=== PATIENT | female | born 1975 | race American Indian/Alaskan Native ===

== ENCOUNTER 2020-12-14 10:55 | Outpatient (CLI) | payer MEDICAID ==
--- NOTE | 2020-12-14 12:53 | XRay Report ---
BILATERAL KNEE RADIOGRAPH, 2 VIEWS INDICATION / CLINICAL INFORMATION: BILATERAL KNEE PAIN COMPARISON: None available. FINDINGS: Right knee: No acute displaced fracture or dislocation. There is mild degenerative change of the simons llofemoral compartment. There is no suprapatellar effusion. Small superior and inferior patellar enth esophytes. No significant soft tissue abnormality. Left knee: No acute displaced fracture or dislocation. There is mild to moderate degenerative change of the patellofemoral compartment. There is a corticated ossific density along the anterior aspect of the tibial tuberosity which may be related to chronic injury. No large supra patellar effusion. Ther e is edema noted in Hoffa's fat pad. Signer Name: Maura Winston MD Signed: 12/14/2020 12:49 PM Workstation Name: [id number]
== END 2020-12-14 10:56 | disposition home or self-care (01) ==
LOC: XRAY 10:55
PROVIDERS: ATTEND Orthopaedic Surgery
DX: M17.0 Bilateral primary osteoarthritis of knee (principal); M76.892 Other specified enthesopathies of left lower limb, excluding foot; M76.891 Other specified enthesopathies of right lower limb, excluding foot; M79.89 Other specified soft tissue disorders